=== PATIENT | female | born 1955 | race Caucasian/White ===

== ENCOUNTER 2022-09-04 11:50 | Emergency (ER) | payer OTHER ==
[~2022-09-04] VITALS: Ht 157.5 cm; Wt 83.9 kg
[2022-09-04] MEDS ORDERED: HYZAAR 50-12.51 EACH (12:05)
[2022-09-04] MEDS ORDERED: COZAAR25 MG (12:05)
[2022-09-04] MEDS ORDERED: NEURONTIN600 M1 (12:06)
[2022-09-04] MEDS ORDERED: CYMBALTA30 MG (12:06)
== END 2022-09-04 13:24 | disposition home or self-care (01) ==
LOC: ER 11:50
DX: U07.1 COVID-19 (principal); I10 Essential (primary) hypertension